=== PATIENT | male | born 1995 | race Two or more races ===

== ENCOUNTER → 2025-04-19 | Outpatient (CLI) | payer OTHER, SELFPAY ==
--- OUTSIDE RECORDS SUMMARY | 2025-04-19 08:04 | XMS RPT_ITS | CCD ---
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 eGFR(ml/min/1.73 sq.m.) CKD 1 Normal kidney function or >=90 normal kindney function with possible kidney damage (ex. Proteinuria) CKD 2 Kidney damage with mild loss 60-89 of kidney function CKD 3a Mild to moderate loss of kidney 45-59 function CKD 3b Moderate to severe loss of 30-44 of kindey function CKD 4 Severe loss of kidney function 15-29 CKD 5 Kidney failure <15 Note: (go live 2024) the eGFR calculation was updated to the 2020 CKD-EPI creatinine equation without a race factor to calculate the eGFR results. Performed By: #### U HUMBERTO, TUP, ANEU, FTI, LD, CMP, GFR, ADIFF, TSH, T4, CK, CBC, LIPID, T3, PHOS #### [address] [address] .NEUABSon 01-01-2025 Neutrophil, Absolute 3.6 10 3/mcL Normal 2.3-8.1 [facility] Comment on above: Performed By: #### U HUMBERTO, TUP, ANEU, FTI, LD, CMP, GFR, ADIFF, TSH, T4, CK, CBC, LIPID, T3, PHOS #### [place] [address] CBCon 01-01-2025 Erythrocyte distribution width (RBC) [Ratio] 13.1 % Normal 11.5-15.5 [facility] Comment on above: Performed By: #### U HUMBERTO, TUP, ANEU, FTI, LD, CMP, GFR, ADIFF, TSH, T4, CK, CBC, LIPID, T3, PHOS #### [place] [address] Hematocrit (Bld) [Volume fraction] 47.5 % Normal 40.0-52.0 [facility] Comment on above: Performed By: #### U HUMBERTO, TUP, ANEU, FTI, LD, CMP, GFR, ADIFF, TSH, T4, CK, CBC, LIPID, T3, PHOS #### [place] [address] Hgb 16.3 G/dL Normal 13.0-17.5 [facility] Comment on above: Performed By: #### U HUMBERTO, TUP, ANEU, FTI, LD, CMP, GFR, ADIFF, TSH, T4, CK, CBC, LIPID, T3, PHOS #### [place] [address] MCH (RBC) [Entitic mass] 31.3 pg Normal 27.0-33.0 [facility] Comment on above: Performed By: #### U HUMBERTO, TUP, ANEU, FTI, LD, CMP, GFR, ADIFF, TSH, T4, CK, CBC, LIPID, T3, PHOS #### [place] [address] MCHC 34.3 G/dL Normal 32.0-36.0 [facility] Comment on above: Performed By: #### U HUMBERTO, TUP, ANEU, FTI, LD, CMP, GFR, ADIFF, TSH, T4, CK, CBC, LIPID, T3, PHOS #### [place] [address] MCV (RBC) [Entitic vol] 91.3 fL Normal 81.0-100.0 [facility] Comment on above: Performed By: #### U HUMBERTO, TUP, ANEU, FTI, LD, CMP, GFR, ADIFF, TSH, T4, CK, CBC, LIPID, T3, PHOS #### [place] [id number] Platelet 242 10 3/mcL Normal 150-450 [facility] Comment on above: Performed By: #### U HUMBERTO, TUP, ANEU, FTI, LD, CMP, GFR, ADIFF, TSH, T4, CK, CBC, LIPID, T3, PHOS #### [place] [id number] Platelet mean volume (Bld) [Entitic vol] 9.0 fL Normal 6.4-10.5 [facility] Comment on above: Performed By: #### U HUMBERTO, TUP, ANEU, FTI, LD, CMP, GFR, ADIFF, TSH, T4, CK, CBC, LIPID, T3, PHOS #### [place] [address] RBC 5.20 10 6/mcL Normal 4.50-6.00 [facility] Comment on above: Performed By: #### U HUMBERTO, TUP, ANEU, FTI, LD, CMP, GFR, ADIFF, TSH, T4, CK, CBC, LIPID, T3, PHOS #### [place] [id number] WBC 6.8 10 3/mcL Normal 4.5-10.8 [facility] Comment on above: Performed By: #### U HUMBERTO, TUP, ANEU, FTI, LD, CMP, GFR, ADIFF, TSH, T4, CK, CBC, LIPID, T3, PHOS #### [place] [id number] CKon 01-01-2025 CK [Catalytic activity/Vol] 179 U/L Normal 7-185 [facility] Comment on above: Performed By: #### U HUMBERTO, TUP, ANEU, FTI, LD, CMP, GFR, ADIFF, TSH, T4, CK, CBC, LIPID, T3, PHOS #### [address] [address] CMPon 01-01-2025 Albumin Level 4.6 G/dL Normal 3.2-4.8 [facility] Comment on above: Performed By: #### U HUMBERTO, TUP, ANEU, FTI, LD, CMP, GFR, ADIFF, TSH, T4, CK, CBC, LIPID, T3, PHOS #### [address] [address] Albumin/Globulin [Mass ratio] 1.6 {ratio} Normal 0.9-1.6 [facility] Comment on above: Performed By: #### U HUMBERTO, TUP, ANEU, FTI, LD, CMP, GFR, ADIFF, TSH, T4, CK, CBC, LIPID, T3, PHOS #### [address] [address] ALP [Catalytic activity/Vol] 107 U/L Normal 38-126 [facility] Comment on above: Performed By: #### U HUMBERTO, TUP, ANEU, FTI, LD, CMP, GFR, ADIFF, TSH, T4, CK, CBC, LIPID, T3, PHOS #### [address] [address] ALT [Catalytic activity/Vol] 17 U/L Normal 12-55 [facility] Comment on above: Performed By: #### U HUMBERTO, TUP, ANEU, FTI, LD, CMP, GFR, ADIFF, TSH, T4, CK, CBC, LIPID, T3, PHOS #### [address] [address] AST [Catalytic activity/Vol] 20 U/L Normal 8-34 [facility] Comment on above: Performed By: #### U HUMBERTO, TUP, ANEU, FTI, LD, CMP, GFR, ADIFF, TSH, T4, CK, CBC, LIPID, T3, PHOS #### [address] [address] Bili Total 0.50 mg/dL Normal 0.20-1.20 [facility] Comment on above: Result Comment: Use of this assay is not recommended for patients undergoing treatment with eltrombopag due to the potential for falsely elevated results. Performed By: #### U HUMBERTO, TUP, ANEU, FTI, LD, CMP, GFR, ADIFF, TSH, T4, CK, CBC, LIPID, T3, PHOS #### [address] [address] BUN/Creatinine Ratio 20.0 ratio Normal 10.0-22.0 [facility] Comment on above: Performed By: #### U HUMBERTO, TUP, ANEU, FTI, LD, CMP, GFR, ADIFF, TSH, T4, CK, CBC, LIPID, T3, PHOS #### [address] [address] Calcium [Mass/Vol] 9.7 mg/dL Normal 8.7-10.4 [facility] Comment on above: Performed By: #### U HUMBERTO, TUP, ANEU, FTI, LD, CMP, GFR, ADIFF, TSH, T4, CK, CBC, LIPID, T3, PHOS #### [address] [address] Chloride [Moles/Vol] 104 mmol/L Normal 98-110 [facility] Comment on above: Performed By: #### U HUMBERTO, TUP, ANEU, FTI, LD, CMP, GFR, ADIFF, TSH, T4, CK, CBC, LIPID, T3, PHOS #### [address] [address] CO2 [Moles/Vol] 29 mmol/L Normal 22-32 [facility] Comment on above: Performed By: #### U HUMBERTO, TUP, ANEU, FTI, LD, CMP, GFR, ADIFF, TSH, T4, CK, CBC, LIPID, T3, PHOS #### [address] [address] Creatinine [Mass/Vol] 0.85 mg/dL Normal 0.60-1.40 [facility] Comment on above: Result Comment: Test ing performed on Qiro analyzer using enzymatic creatinine methodology. Performed By: #### U HUMBERTO, TUP, ANEU, FTI, LD, CMP, GFR, ADIFF, TSH, T4, CK, CBC, LIPID, T3, PHOS #### [address] [address] Electrolyte Balance 8.0 mEq/L Normal 4.0-15.0 [facility] Comment on above: Performed By: #### U HUMBERTO, TUP, ANEU, FTI, LD, CMP, GFR, ADIFF, TSH, T4, CK, CBC, LIPID, T3, PHOS #### [address] [address] Globulin 2.8 G/dL Normal 2.5-4.2 [facility] Comment on above: Performed By: #### U HUMBERTO, TUP, ANEU, FTI, LD, CMP, GFR, ADIFF, TSH, T4, CK, CBC, LIPID, T3, PHOS #### [address] [address] Glucose [Mass/Vol] 102 mg/dL Normal 70-110 [facility] Comment on above: Performed By: #### U HUMBERTO, TUP, ANEU, FTI, LD, CMP, GFR, ADIFF, TSH, T4, CK, CBC, LIPID, T3, PHOS #### [address] [address] Potassium [Moles/Vol] 3.9 mmol/L Normal 3.5-5.0 [facility] Comment on above: Performed By: #### U HUMBERTO, TUP, ANEU, FTI, LD, CMP, GFR, ADIFF, TSH, T4, CK, CBC, LIPID, T3, PHOS #### [address] [address] Sodium [Moles/Vol] 141 mmol/L Normal 136-145 [facility] Comment on above: Performed By: #### U HUMBERTO, TUP, ANEU, FTI, LD, CMP, GFR, ADIFF, TSH, T4, CK, CBC, LIPID, T3, PHOS #### [place] [address] Total Protein 7.4 G/dL Normal 5.7-8.2 [facility] Comment on above: Performed By: #### U HUMBERTO, TUP, ANEU, FTI, LD, CMP, GFR, ADIFF, TSH, T4, CK, CBC, LIPID, T3, PHOS #### [place] [address] Urea nitrogen [Mass/Vol] 17.0 mg/dL Normal 8.0-22.0 [facility] Comment on above: Performed By: #### U HUMBERTO, TUP, ANEU, FTI, LD, CMP, GFR, ADIFF, TSH, T4, CK, CBC, LIPID, T3, PHOS #### [place] [address] FTIon 01-01-2025 Free Thyroxine Index 11.02 Normal 3.60-14.00 [facility] Comment on above: Performed By: #### U HUMBERTO, TUP, ANEU, FTI, LD, CMP, GFR, ADIFF, TSH, T4, CK, CBC, LIPID, T3, PHOS #### [place] [id number] LDHon 01-01-2025 LDH 197 U/L Normal 120-246 [facility] Comment on above: Performed By: #### U HUMBERTO, TUP, ANEU, FTI, LD, CMP, GFR, ADIFF, TSH, T4, CK, CBC, LIPID, T3, PHOS #### [place] [address] LIPIDon 01-01-2025 Cholesterol [Mass/Vol] 179 mg/dL Normal 50-199 [facility] Comment on above: Result Comment: Chol esterol Reference Interval: Less than 200 Desirable 200-239 Borderline high risk 240 and above High risk Performed By: #### U HUMBERTO, TUP, ANEU, FTI, LD, CMP, GFR, ADIFF, TSH, T4, CK, CBC, LIPID, T3, PHOS #### [place] [address] Cholesterol in HDL [Mass/Vol] 57 mg/dL Normal 40-59 [facility] Comment on above: Performed By: #### U HUMBERTO, TUP, ANEU, FTI, LD, CMP, GFR, ADIFF, TSH, T4, CK, CBC, LIPID, T3, PHOS #### [place] [address] Cholesterol in LDL [Mass/Vol] 109 mg/dL Normal 0-129 [facility] Comment on above: Performed By: #### U HUMBERTO, TUP, ANEU, FTI, LD, CMP, GFR, ADIFF, TSH, T4, CK, CBC, LIPID, T3, PHOS #### [place] [address] Triglyceride [Mass/Vol] 65 mg/dL Normal 3-149 [facility] Comment on above: Performed By: #### U HUMBERTO, TUP, ANEU, FTI, LD, CMP, GFR, ADIFF, TSH, T4, CK, CBC, LIPID, T3, PHOS #### [place] [address] PHOSon 01-01-2025 Phosphate [Mass/Vol] 3.2 mg/dL Normal 2.4-5.1 [facility] Comment on above: Performed By: #### U HUMBERTO, TUP, ANEU, FTI, LD, CMP, GFR, ADIFF, TSH, T4, CK, CBC, LIPID, T3, PHOS #### [place] [address] T3on 01-01-2025 Total T3 119 ng/dL Normal 60-181 [facility] Comment on above: Performed By: #### U HUMBERTO, TUP, ANEU, FTI, LD, CMP, GFR, ADIFF, TSH, T4, CK, CBC, LIPID, T3, PHOS #### [place] [address] T4on 01-01-2025 T4 [Mass/Vol] 6.8 ug/dL Normal 4.5-10.9 [facility] Comment on above: Result Comment: No te - New Reference Range in effect 20 Performed By: #### U HUMBERTO, TUP, ANEU, FTI, LD, CMP, GFR, ADIFF, TSH, T4, CK, CBC, LIPID, T3, PHOS #### [place] [id number] TSHon 01-01-2025 TSH 1.336 mIU/mL Normal 0.550-4.780 [facility] Comment on above: Performed By: #### U HUMBERTO, TUP, ANEU, FTI, LD, CMP, GFR, ADIFF, TSH, T4, CK, CBC, LIPID, T3, PHOS #### [place] [address] TUPon 01-01-2025 T Uptake 1.62 ratio High 0.90-1.43 [facility] Comment on above: Result Comment: No te - New Reference Range in effect 20 Performed By: #### U HUMBERTO, TUP, ANEU, FTI, LD, CMP, GFR, ADIFF, TSH, T4, CK, CBC, LIPID, T3, PHOS #### [place] [address] URICon 01-01-2025 Uric Acid Lvl 6.5 mg/dL Normal 3.7-9.2 [facility] Comment on above: Performed By: #### U HUMBERTO, TUP, ANEU, FTI, LD, CMP, GFR, ADIFF, TSH, T4, CK, CBC, LIPID, T3, PHOS #### [place] [address] Laboratory - Chemistry and C hemistry - challenge 01-25-2024 Albumin [Mass/Vol] 4.4 g/dL Normal 3.4 - 5.0 g/dL [facility] Work Phone: Albumin [Mass/Vol] 1.4 g/dL Normal 0.9 - 1.6 [facility]; [facility] Work Phone: ALT [Catalytic activity/Vol] 30 U/L Normal 16 - 63 U/L [facility]; [facility] Work Phone: Anion gap [Moles/Vol] 11 mmol/L Normal 10 - 20 mmol/L [facility]; [facility] Work Phone: AST [Catalytic activity/Vol] 21 U/L Normal 15 - 37 U/L [facility]; [facility] Work Phone: Bilirubin [Mass/Vol] 0.6 mg/dL Normal 0.2 - 1.0 mg/dL [facility]; [facility] Work Phone: Calcium [Mass/Vol] 9.3 mg/dL Normal 8.5 - 10. 1 mg/dL [facility]; [facility] Work Phone: Chloride [Moles/Vol] 102 mmol/L Normal 98 - 107 mmol/L [facility]; [facility] Work Phone: Cholesterol [Mass/Vol] 202 mg/dL Normal 0 - 240 mg/dL [facility]; [facility] Work Phone: Cholesterol in HDL [Mass or moles/Vol] 64 mg/dL Abnormal 40 - 60 mg/dL [facility]; [facility] Work Phone: Cholesterol in LDL [Mass/Vol] 123 mg/dL Normal 0 - 129 mg/dL [facility]; [facility] Work Phone: Cholesterol.total/ Cholesterol in HDL [Mass ratio] 3.2 {ratio} Normal 0.0 - 5.0 [facility]; [facility] Work Phone: CO2 [Moles/Vol] 29.2 mmol/L Normal 21.0 - 32.0 mmol/L [facility]; [facility] Work Phone: Creatinine [Mass/Vol] 1.06 mg/dL Normal 0.70 - 1.30 mg/dL [facility]; [facility] Work Phone: GFR/1.73 sq M.predicted among blacks MDRD (S/P/Bld) [Vol rate/Area] mL/min/{1.73_m2} Normal 60 - 999 {ML/MINUTE} [facility]; [facility] Work Phone: GFR/1.73 sq M.predicted MDRD (S/P/Bld) [Vol rate/Area] mL/min/{1.73_m2} Normal 60 - 999 {ML/MINUTE} [facility]; [facility]. Work Phone: Globulin (S) [Mass/Vol] 3.2 g/dL Normal 1.5 - 3.8 g/dL [facility]; [facility] Work Phone: Glucose [Mass/Vol] 108 mg/dL Abnormal 74 - 106 mg/dL [facility]; [facility] Work Phone: Lipid 1996 panel Normal [facility]; [facility] Work Phone: Potassium [Moles/Vol] 4.4 mmol/L Normal 3.5 - 5.1 mmol/L [facility]; [facility] Work Phone: Protein [Mass/Vol] 7.6 g/dL Normal 6.4 - 8.2 g/dL [facility]; [facility] Work Phone: Sodium [Moles/Vol] 138 mmol/L Normal 136 - 145 mmol/L [facility].; [email or web address] [facility], [employer]. Work Phone: Triglyceride [Mass/Vol] 75 mg/dL Normal 0 - 150 mg/dL [facility].; [email or web address] [facility]. Work Phone: Urea nitrogen [Mass/Vol] 13 mg/dL Normal 7 - 18 mg/dL [facility].; [employer] [facility]. Work Phone: Urea nitrogen/Creatinin e [Mass ratio] 12 {ratio} Normal 0 - 30 {ratio} [facility].; [facility], [employer]. Work Phone: No Panel Informationon 01-24 AGE 28 {years} Normal [facility].; [employer] [facility], [employer]. Work Phone: ALK PHOS 113 U/L Normal 46 - 116 U/L [facility].; 5[employer] [facility], [employer]. Work Phone: CMP with eGFR Normal [facility]; [employer] [facility]. Work Phone: RUBEOon 05-03-2023 Rubeola IgG Ab Positive Normal [facility] ([place]) Comment on above: Result Comment: INTE RPRETATION OF RUBEOLA (MEASLES) IgG BY EIA: Negative: No detectable Measles IgG antibody. Presumed non-immune to measles virus. Positive: Measles IgG antibody Detected. Presumed immune to measles virus. If clinically indicated, order Measles IgM to rule out active infection. Equivocal: Equivocal for antibodies to Measles. Suggest repeat testing 10-14 days. Performed By: #### R UBEO, VARIS, HBSAB, RUBIS #### [place] [address] VARISon 05-03-[address] Positive Normal [facility] ([place]) Comment on above: Result Comment: INTE RPRETATION OF VARICELLA IMMUNE STATUS IgG BY EIA: Negative: No detectable VZV IgG antibody. Positive: VZV IgG antibody Detected. If clinically indicated, order Varicella IgM to rule out recent infection. Equivocal: Equivocal for antibodies to VZV. Suggest repeat testing in 10-14 days. Performed By: #### R HOSSEIN VILLAS, HBSAB, RUBIS #### [address] [address] RUBISon 04-29-[address] Positive Normal Positive [facility] ([place]) Comment on above: Result Comment: This immune status assay detects IgM and/or IgG antibody to Rubella. Interpret results in conjunction with clinical history. POS: Antibody detected; exposure at undetermined recent or distant time. If clinically indicated, order Rubella IGM to rule out recent infection. NEG: No antibody detected. Performed By: #### R HOSSEIN VILLAS, HBSAB, RUBIS #### [address] [address] HBSABon 04-28-2023 Hep B Surf Ab 568.5 mIU/mL Normal >=10.0 [facility] ([place]) Comment on above: Result Comment: 0 to < 10.0 mIU/mL Nonreactive Patient is considered not to have protective immunity to HBV infection >/= 10.0 mIU/mL Reactive Patient is considered to have protective immunity to HBV infection. This assay is traceable to the World Health Organization (WHO) Hepatitis B Immunoglobulin 1st International Reference Preparation (1976). The accepted criteria for immunity to HBV is anti-HBs activity >/= 10.0 mIU/mL, as defined by the WHO International Reference Preparation. Performed By: #### R HOSSEIN VILLAS, HBSAB, RUBIS #### [address] [address] Laboratory - Chemistry and C hemistry - challengeon 05-18-2018 Albumin BCP dye [Mass/Vol] 4.3 g/dL Normal 3.2 - 4.8 g/dL [facility], [facility].; [facility] Albumin/Globulin [Mass ratio] 1.4 {ratio} Normal 0.9 - 1.6 {ratio} [facility].; [facility]. ALP [Catalytic activity/Vol] 123 U/L Normal 38 - 126 U/L [facility]; [facility] ALT No additional P-5'-P [Catalytic activity/Vol] 26 U/L Normal 12 - 55 U/L [facility]; [facility] ALT With P-5'-P [Catalytic activity/Vol] 26 U/L Normal 12 - 55 U/L [facility]; [facility] AST [Catalytic activity/Vol] 18 U/L Normal 8 - 34 U/L [facility]; [facility] AST With P-5'-P [Catalytic activity/Vol] 18 U/L Normal 8 - 34 U/L [facility]; [facility] Bilirubin [Mass/Vol] 0.3 mg/dL Normal 0.2 - 1.2 mg/dL [facility]; [facility] Calcium [Mass/Vol] 9.3 mg/dL Normal 8.4 - 10. 1 mg/dL [facility]; [facility] Chloride [Moles/Vol] 102 mmol/L Normal 98 - 110 meq/L [facility]; [facility] CO2 [Moles/Vol] 28 mmol/L Normal 22 - 32 meq/L [facility]; [facility] Creatinine [Mass/Vol] 0.91 mg/dL Normal 0.60 - 1.40 mg/dL [facility]; [facility], [facility] GFR/1.73 sq M.predicted among blacks MDRD (S/P/Bld) [Vol rate/Area] mL/min/{1.73_m2} Normal [facility]; [facility] Work Phone: GFR/1.73 sq M.predicted among non-blacks MDRD (S/P/Bld) [Vol rate/Area] mL/min/{1.73_m2} Normal [facility]; [facility] Work Phone: Globulin (S) [Mass/Vol] 3.1 g/dL Normal 1.5 - 3.8 g/dL [facility]; [facility] Glucose [Mass/Vol] 71 mg/dL Normal 70 - 110 mg/dL [facility]; [facility] Potassium [Moles/Vol] 4.0 mmol/L Normal 3.5 - 5.0 meq/L [facility]; [facility] Protein [Mass/Vol] 7.4 g/dL Normal 6.0 - 8.5 g/dL [facility]; [facility] Sodium [Moles/Vol] 139 mmol/L Normal 136 - 145 meq/L [facility]; [facility] Urea nitrogen [Mass/Vol] 18.0 mg/dL Normal 8.0 - 22.0 mg/dL [facility]; [facility] Urea nitrogen/Creatinin e [Mass ratio] 19.8 {ratio} Normal 10.0 - 22.0 {ratio} [facility]; [facility] No Panel Informationon 05-18 Electrolyte Balance 9.0 meq/L Normal 4.0 - 15.0 meq/L [facility]; [facility], [facility] Laboratory - Chemistry and C hemistry - challengeon 11-30-2017 Albumin BCP dye [Mass/Vol] 4.3 g/dL Normal 3.2 - 4.8 g/dL [facility]; [facility] Albumin/Globulin [Mass ratio] 1.5 {ratio} Normal 0.9 - 1.6 {ratio} [facility]; [facility] ALP [Catalytic activity/Vol] 131 U/L Abnormal 38 - 126 U/L [facility]; [facility] ALT No additional P-5'-P [Catalytic activity/Vol] 55 U/L Normal 12 - 55 U/L [facility]; [facility] ALT With P-5'-P [Catalytic activity/Vol] 55 U/L Normal 12 - 55 U/L [facility]; [facility] AST [Catalytic activity/Vol] 50 U/L Abnormal 8 - 34 U/L [facility]; [facility] AST With P-5'-P [Catalytic activity/Vol] 50 U/L Abnormal 8 - 34 U/L [facility]; [facility] Bilirubin [Mass/Vol] 0.3 mg/dL Normal 0.2 - 1.2 mg/dL [facility]; [facility] Bilirubin Ql (U) Negative Normal [facility]; [facility] Calcium [Mass/Vol] 9.8 mg/dL Normal 8.4 - 10. 1 mg/dL [facility]; [facility] Chloride [Moles/Vol] 104 mmol/L Normal 98 - 110 meq/L [facility]; [facility] CO2 [Moles/Vol] 29 mmol/L Normal 22 - 32 meq/L [facility]; [facility] Creatinine [Mass/Vol] 0.89 mg/dL Normal 0.60 - 1.40 mg/dL [facility]; [facility], [facility] GFR/1.73 sq M.predicted among blacks MDRD (S/P/Bld) [Vol rate/Area] mL/min/{1.73_m2} Normal [facility]; [facility] Work Phone: GFR/1.73 sq M.predicted among non-blacks MDRD (S/P/Bld) [Vol rate/Area] mL/min/{1.73_m2} Normal [facility].; [facility] Work Phone: Globulin (S) [Mass/Vol] 2.9 g/dL Normal 1.5 - 3.8 g/dL [facility]; [facility] Glucose [Mass/Vol] 88 mg/dL Normal 70 - 110 mg/dL [facility]; [facility] Ketones Ql (U) Negative [facility]; [facility] Lipase [Catalytic activity/Vol] 90 U/L Normal 73 - 393 U/L [facility]; [facility] pH (U) 7.0 [pH] [facility]; [facility] Potassium [Moles/Vol] 4.8 mmol/L Normal 3.5 - 5.0 meq/L [facility]; [facility] Protein [Mass/Vol] 7.2 g/dL Normal 6.0 - 8.5 g/dL [facility]; [facility] Sodium [Moles/Vol] 140 mmol/L Normal 136 - 145 meq/L [facility]; [facility], [facility] Specific gravity (U) [Rel density] 1.015 [facility]; [facility], [facility] Urea nitrogen [Mass/Vol] 17.0 mg/dL Normal 8.0 - 22.0 mg/dL [facility].; [facility] Urea nitrogen/Creatinin e [Mass ratio] 19.1 {ratio} Normal 10.0 - 22.0 {ratio} [facility].; [facility] Laboratory - Hematology and Cell countson 11-30-2017 Basophils (Bld) [#/Vol] 0.00 10 Normal 0.00 - 0.27 10 [facility].; [facility] Work Phone: Basophils/100 WBC (Bld) 0.5 % Normal 0.0 - 2.5 % [facility].; [facility] Work Phone: Eosinophils (Bld) [#/Vol] 0.10 10 Normal 0.00 - 0.[address] [place] [address].; [facility] Work Phone: Eosinophils/100 WBC (Bld) 2.6 % Normal 0.0 - 6.0 % [facility].; [facility] Work Phone: Erythrocyte distribution width (RBC) [Ratio] 13.2 % Normal 11.5 - 15.5 % [facility].; [facility] Hematocrit (Bld) [Volume fraction] 46.3 % Normal 40.0 - 52.0 % [facility].; [facility], [facility] Hemoglobin (Bld) [Mass/Vol] 15.3 g/dL Normal 13.0 - 17.5 g/dL [facility].; [facility], [facility] Hemoglobin Ql (U) Negative Normal [facility]; [facility] Lymphocytes (Bld) [#/Vol] 2.10 10 Normal 0.90 - 4.32 10 [facility].; [facility], [facility]. Work Phone: Lymphocytes/100 WBC (Bld) 39.8 % Normal 20.0 - 40.0 % [facility].; [facility], [facility]. Work Phone: MCH (RBC) [Entitic mass] 31.2 pg Normal 27.0 - 33.0 pg [facility].; [facility], [facility]. MCHC (RBC) [Mass/Vol] 33.1 g/dL Normal 32.0 - 36.0 g/dL [facility].; [facility], [facility]. MCV (RBC) [Entitic vol] 94.3 fL Normal 81.0 - 100.0 fL [facility].; [facility] Monocytes (Bld) [#/Vol] 0.40 10 Normal 0.09 - 1.40 10 [facility].; [facility], [facility]. Work Phone: Monocytes/100 WBC (Bld) 8.0 % Normal 2.0 - 13.0 % [facility].; [facility], [facility]. Work Phone: Neutrophils (Bld) [#/Vol] 2.60 10 Normal 2.25 - 8.10 10 [facility].; [facility], [facility]. Work Phone: Neutrophils/100 WBC (Bld) 49.1 % Abnormal 50.0 - 75.0 % [facility].; [facility], [facility]. Work Phone: Platelet mean volume (Bld) [Entitic vol] 10.0 fL Normal 6.4 - 10.5 fL [facility].; [facility] Platelets (Bld) [#/Vol] 191 10 Normal 150 - 450 10 [facility].; [facility] RBC (Bld) [#/Vol] 4.91 10 Normal 4.50 - 6.00 10 [facility] [employer].; [facility] WBC (Bld) [#/Vol] 5.30 10 Normal 4.50 - 10. 80 10 [facility].; [facility] Laboratory - Specimen inform ationon 11-30-2017 Appearance (U) CLEAR Normal [facility].; [facility] Color (U) YELLOW Normal [facility].; [facility] Laboratory - Urinalysison Glucose Test strip (U) [Mass/Vol] Negative Normal [facility].; [facility] Leukocyte esterase Test strip Ql (U) Negative Normal [facility].; [facility] Nitrite Ql (U) Negative Normal [facility].; [facility] Protein Ql (U) Negative Normal [facility].; [facility] No Panel Informationon 11-30 Basophil, Absolute 0.00 10 Normal 0.00 - 0.27 10 [facility].; [facility] Work Phone: Electrolyte Balance 7.0 meq/L Normal 4.0 - 15.0 meq/L [facility].; [facility] Eosinophil, Absolute 0.10 10 Normal 0.00 - 0.65 10 [facility].; [facility] Work Phone: Lymphocyte, Absolute 2.10 10 Normal 0.90 - 4.32 10 [facility].; [facility]. Work Phone: Monocyte, Absolute 0.40 10 Normal 0.09 - 1.40 10 [facility]; [facility]. Work Phone: Neutrophil, Absolute 2.60 10 Normal 2.25 - 8.10 10 [facility]; [facility]. Work Phone: UA - ODOR Negative Normal [facility]; [facility] UA - UROBILIGEN 0.2 Normal [facility]; [facility] Laboratory - Chemistry and C hemistry - challengeon 06-02-2017 Albumin BCP dye [Mass/Vol] 4.9 g/dL Normal 3.5 - 5.0 g/dL [facility]; [facility] Work Phone: Albumin/Globulin [Mass ratio] 1.9 {ratio} Normal 1.1 - 2.5 {ratio} [facility]; [facility]. Work Phone: ALP [Catalytic activity/Vol] 129 U/L Normal 40 - 135 [iU]/L [facility]; [facility]. Work Phone: ALT No additional P-5'-P [Catalytic activity/Vol] 17 U/L Normal 10 - 35 [iU]/L [facility]; [facility]. Work Phone: ALT With P-5'-P [Catalytic activity/Vol] 17 U/L Normal 10 - 35 [iU]/L [facility].; [facility]. Work Phone: AST [Catalytic activity/Vol] 19 U/L Normal 10 - 40 [iU]/L [facility].; [facility]. Work Phone: AST With P-5'-P [Catalytic activity/Vol] 19 U/L Normal 10 - 40 [iU]/L [facility]; [facility]. Work Phone: Bilirubin [Mass/Vol] 0.5 mg/dL Normal 0.2 - 1.0 mg/dL [facility]; [facility]. Work Phone: Calcium [Mass/Vol] 10.1 mg/dL Normal 8.4 - 10. 2 mg/dL [facility]; [facility]. Work Phone: Chloride [Moles/Vol] 103 mmol/L Normal 98 - 107 meq/L [facility]; [facility]. Work Phone: CO2 [Moles/Vol] 31 mmol/L Abnormal 22 - 29 meq/L [facility].; [facility]. Work Phone: Creatinine [Mass/Vol] 1.0 mg/dL Normal 0.6 - 1.2 mg/dL [facility]; [facility]. Work Phone: GFR/1.73 sq M.predicted among blacks MDRD (S/P/Bld) [Vol rate/Area] 110 {ml/min/1.73sqm} Normal [facility]; [facility]. Work Phone: GFR/1.73 sq M.predicted among non-blacks MDRD (S/P/Bld) [Vol rate/Area] mL/min/{1.73_m2} Normal [facility]; [facility]. Work Phone: Globulin (S) [Mass/Vol] 2.6 g/dL Normal [facility]; [facility] Work Phone: Glucose [Mass/Vol] 132 mg/dL Abnormal 70 - 105 mg/dL [facility]; [facility] Work Phone: Potassium [Moles/Vol] 4.9 mmol/L Normal 3.5 - 5.1 meq/L [facility]; [facility] Work Phone: Protein [Mass/Vol] 7.5 g/dL Normal 6.0 - 8.3 g/dL [facility]; [facility] Work Phone: Sodium [Moles/Vol] 140 mmol/L Normal 136 - 146 meq/L [facility]; [facility] Work Phone: Urea nitrogen [Mass/Vol] 12.0 mg/dL Normal 7.0 - 18.0 mg/dL [facility]; [facility] Work Phone: Urea nitrogen/Creatinin e [Mass ratio] 12 {ratio} Normal 7 - 27 {ratio} [facility]; [facility] Work Phone: Laboratory - Hematology and Cell countson 06-02-2017 Basophils (Bld) [#/Vol] 0.00 10 Normal 0.00 - 0.[address] [place] [address]; [facility] Work Phone: Basophils/100 WBC (Bld) 0.6 % Normal 0.0 - 2.5 % [facility]; [facility] Work Phone: Eosinophils (Bld) [#/Vol] 0.20 10 Normal 0.00 - 0.[address] [place] [address]; [facility] Work Phone: Eosinophils/100 WBC (Bld) 3.2 % Normal 0.0 - 7.0 % [facility]; [facility] Work Phone: Erythrocyte distribution width (RBC) [Ratio] 12.4 % Normal 11.5 - 14.5 % [facility]; [facility] Work Phone: ESR Photometric method (Bld) [Velocity] 1 mm/h Normal 0 - 15 mm/h [facility]; [facility] Work Phone: Hematocrit (Bld) [Volume fraction] 47.7 % Normal 42.0 - 52.0 % [facility]; [facility] Work Phone: Hemoglobin (Bld) [Mass/Vol] 16.0 g/dL Normal 14.0 - 18.0 g/dL [facility]; [facility] Work Phone: Lymphocytes (Bld) [#/Vol] 2.10 10 Normal 0.77 - 3.85 10 [facility]; [facility] Work Phone: Lymphocytes/100 WBC (Bld) 38.1 % Normal 10.0 - 50.0 % [facility]; [facility] Work Phone: MCH (RBC) [Entitic mass] 30.1 pg Normal 27.0 - 31.2 pg [facility]; [facility] Work Phone: MCHC (RBC) [Mass/Vol] 33.6 g/dL Normal 31.8 - 35.4 g/dL [facility]; [facility] Work Phone: MCV (RBC) [Entitic vol] 89.6 fL Normal 80.0 - 94.0 fL [facility] Center[facility]; [facility]. Work Phone: Monocytes (Bld) [#/Vol] 0.40 10 Normal 0.15 - 1.00 10 [facility].; [facility]. Work Phone: Monocytes/100 WBC (Bld) 7.1 % Normal 1.7 - 13.0 % [facility].; [facility]. Work Phone: Neutrophils (Bld) [#/Vol] 2.90 10 Normal 2.85 - 6.16 10 [facility].; [facility]. Work Phone: Neutrophils/100 WBC (Bld) 51.0 % Normal 37.0 - 80.0 % [facility] HospitalBel[facility] [employer]; [facility]. Work Phone: Platelet mean volume (Bld) [Entitic vol] 9.3 fL Normal 7.4 - 10.4 fL [facility].; [facility]. Work Phone: Platelets (Bld) [#/Vol] 204 10 Normal 130 - 400 10 [facility].; [facility]. Work Phone: RBC (Bld) [#/Vol] 5.32 10 Normal 4.04 - 6.13 10 [facility].; [facility]. Work Phone: WBC (Bld) [#/Vol] 5.60 10 Normal 4.60 - 10. 80 10 [facility].; [facility], [employer]. Work Phone: No Panel Informationon 06-02 Basophil, Absolute 0.00 10 Normal 0.00 - 0.19 10 [facility]; [facility]. Work Phone: Electrolyte Balance 6.0 meq/L Normal [facility]; [facility] Work Phone: Eosinophil, Absolute 0.20 10 Normal 0.00 - 0.40 10 [facility]; [facility] Work Phone: Lymphocyte, Absolute 2.10 10 Normal 0.77 - 3.85 10 [facility]; [facility]. Work Phone: Monocyte, Absolute 0.40 10 Normal 0.15 - 1.00 10 [facility]; [facility] Work Phone: Neutrophil, Absolute 2.90 10 Normal 2.85 - 6.16 10 [facility]; [facility] Work Phone: Laboratory - Chemistry and C hemistry - challengeon 03-03-2017 Albumin BCP dye [Mass/Vol] 5.0 g/dL Normal 3.5 - 5.0 g/dL [facility]; [facility] Work Phone: Albumin/Globulin [Mass ratio] 1.7 {ratio} Normal 1.1 - 2.5 {ratio} [facility]; [facility] Work Phone: ALP [Catalytic activity/Vol] 157 U/L Abnormal 40 - 135 [iU]/L [facility]; [facility] Work Phone: ALT No additional P-5'-P [Catalytic activity/Vol] 23 U/L Normal 10 - 35 [iU]/L [facility]; [facility] Work Phone: ALT With P-5'-P [Catalytic activity/Vol] 23 U/L Normal 10 - 35 [iU]/L [facility]; [facility] Work Phone: AST [Catalytic activity/Vol] 22 U/L Normal 10 - 40 [iU]/L [facility]; [facility] Work Phone: AST With P-5'-P [Catalytic activity/Vol] 22 U/L Normal 10 - 40 [iU]/L [facility]; [facility] Work Phone: Bilirubin [Mass/Vol] 0.4 mg/dL Normal 0.2 - 1.0 mg/dL [facility]; [facility] Work Phone: Calcium [Mass/Vol] 10.2 mg/dL Normal 8.4 - 10. 2 mg/dL [facility]; [facility] Work Phone: Chloride [Moles/Vol] 103 mmol/L Normal 98 - 107 meq/L [facility]; [facility] Work Phone: Cholesterol [Mass/Vol] 173 mg/dL Normal 131 - 200 mg/dL [facility]; [facility] Work Phone: Cholesterol in HDL [Mass/Vol] 57 mg/dL Normal 35 - 90 mg/dL [facility]; [facility] Work Phone: Cholesterol in LDL [Mass/Vol] 103 mg/dL Normal 0 - 130 mg/dL [facility]; [facility], [facility] Work Phone: CO2 [Moles/Vol] 29 mmol/L Normal 22 - 29 meq/L [facility].; [facility] Work Phone: Creatinine [Mass/Vol] 1.0 mg/dL Normal 0.6 - 1.2 mg/dL [facility]; [facility] Work Phone: GFR/1.73 sq M.predicted among blacks MDRD (S/P/Bld) [Vol rate/Area] 115 {ml/min/1.73sqm} Normal [facility]; [facility]. Work Phone: GFR/1.73 sq M.predicted among non-blacks MDRD (S/P/Bld) [Vol rate/Area] mL/min/{1.73_m2} Normal [facility].; [facility]. Work Phone: Globulin (S) [Mass/Vol] 2.9 g/dL Normal [facility]; [facility] Work Phone: Glucose [Mass/Vol] 108 mg/dL Abnormal 70 - 105 mg/dL [facility]; [facility] Work Phone: Magnesium [Mass/Vol] 114 mg/dL Normal 60 - 129 mg/dL [facility]; [facility]. Work Phone: Potassium [Moles/Vol] 5.0 mmol/L Normal 3.5 - 5.1 meq/L [facility]; [facility] Work Phone: Protein [Mass/Vol] 7.9 g/dL Normal 6.0 - 8.3 g/dL [facility]; [facility] Work Phone: Sodium [Moles/Vol] 140 mmol/L Normal 136 - 146 meq/L [facility]; [facility] Work Phone: Triglyceride [Mass/Vol] 67 mg/dL Normal 40 - 150 mg/dL [facility]; [facility] Work Phone: Urea nitrogen [Mass/Vol] 19.5 mg/dL Abnormal 7.0 - 18.0 mg/dL [facility]; [facility]. Work Phone: Urea nitrogen/Creatinin e [Mass ratio] 20 {ratio} Normal 7 - 27 {ratio} [facility]; [facility] Work Phone: Laboratory - Hematology and Cell countson 03-03-2017 Basophils (Bld) [#/Vol] 0.10 10 Normal 0.00 - 0.[address] [place] [address]; [facility]. Work Phone: Basophils/100 WBC (Bld) 0.8 % Normal 0.0 - 2.5 % [facility]; [facility]. Work Phone: Eosinophils (Bld) [#/Vol] 0.30 10 Normal 0.00 - 0.[address] [place] [address]; [facility] Work Phone: Eosinophils/100 WBC (Bld) 4.0 % Normal 0.0 - 7.0 % [facility]; [facility] Work Phone: Erythrocyte distribution width (RBC) [Ratio] 12.7 % Normal 11.5 - 14.5 % [facility]; [facility] Work Phone: Hematocrit (Bld) [Volume fraction] 49.6 % Normal 42.0 - 52.0 % [facility]; [facility] Work Phone: Hemoglobin (Bld) [Mass/Vol] 16.8 g/dL Normal 14.0 - 18.0 g/dL [facility]; [facility] Work Phone: Lymphocytes (Bld) [#/Vol] 3.40 10 Normal 0.77 - 3.85 10 [facility].; [facility] Work Phone: Lymphocytes/100 WBC (Bld) 43.4 % Normal 10.0 - 50.0 % [facility]; [facility] Work Phone: MCH (RBC) [Entitic mass] 30.5 pg Normal 27.0 - 31.2 pg [facility]; [facility] Work Phone: MCHC (RBC) [Mass/Vol] 33.8 g/dL Normal 31.8 - 35.4 g/dL [facility]; [facility] Work Phone: MCV (RBC) [Entitic vol] 90.0 fL Normal 80.0 - 94.0 fL [facility]; [facility] Work Phone: Monocytes (Bld) [#/Vol] 0.50 10 Normal 0.15 - 1.[address] [place] [address].; [facility]. Work Phone: Monocytes/100 WBC (Bld) 6.5 % Normal 1.7 - 13.0 % [facility]; [facility] Work Phone: Neutrophils (Bld) [#/Vol] 3.60 10 Normal 2.85 - 6.16 10 [facility]; [facility] Work Phone: Neutrophils/100 WBC (Bld) 45.3 % Normal 37.0 - 80.0 % [facility]; [facility] Work Phone: Platelet mean volume (Bld) [Entitic vol] 8.6 fL Normal 7.4 - 10.4 fL [facility].; [facility], [facility]. Work Phone: Platelets (Bld) [#/Vol] 221 10 Normal 130 - 400 10 [facility].; [facility], [facility]. Work Phone: RBC (Bld) [#/Vol] 5.51 10 Normal 4.04 - 6.13 10 [facility].; [facility], [facility]. Work Phone: WBC (Bld) [#/Vol] 7.90 10 Normal 4.60 - 10. 80 10 [facility].; [facility], [facility]. Work Phone: No Panel Informationon 03-03 Basophil, Absolute 0.10 10 Normal 0.00 - 0.19 10 [facility].; [facility], [facility]. Work Phone: Electrolyte Balance 8.0 meq/L Normal [facility]; [facility], [facility]. Work Phone: Eosinophil, Absolute 0.30 10 Normal 0.00 - 0.40 10 [facility].; [facility], [facility]. Work Phone: Lymphocyte, Absolute 3.40 10 Normal 0.77 - 3.85 10 [facility].; [facility], [facility]. Work Phone: Monocyte, Absolute 0.50 10 Normal 0.15 - 1.00 10 [facility].; [facility]. Work Phone: Neutrophil, Absolute 3.60 10 Normal 2.85 - 6.16 10 [facility].; [facility]. Work Phone: VLDL Cholesterol Test Not Indicated Normal [facility].; [facility], [facility]. Work Phone: Vital Signs Date Time Vital Sign Value Performing Clinician Facility 04-03-2025 08:41-0400 Body height 177.[address] Adam Deluca MD Work Phone: [facility] 04-03-2025 08:41-0400 Body mass index (BMI) [Ratio] 24.7 kg/m2 Dr. Adam Deluca MD Work Phone: [facility] 04-03-2025 08:41-0400 Body weight 78.[address] Adam Deluca MD Work Phone: [facility] 01-29-2025 10:26-0400 Body height 182.88 cm Batool Lizarraga RN [facility].; [facility], [facility]. 01-29-2025 10:26-0400 Body mass index (BMI) [Ratio] 23.6 kg/m2 Batool Lizarraga RN [facility].; [facility], [facility]. 01-29-2025 10:26-0400 Body surface area Derived from formula 2.01 m2 Batool Lizarraga RN [facility].; [facility], [facility]. 01-29-2025 10:26-0400 Body weight 78.93 kg Batool Lizarraga RN [facility].; [facility], [facility]. 01-29-2025 10:26-0400 Diastolic blood pressure 79 mm[Hg] Batool Lizarraga RN [facility].; [facility], [facility]. Comment on above: Patient Position: Sitting; Cuff Location : Left Arm; Cuff Size: Large 01-29-2025 10:26-0400 Heart rate 71 /min Batool Lizarraga RN [facility], [facility].; [facility]. Comment on above: Pattern: Regular 01-29-2025 10:26-0400 Systolic blood pressure 127 mm[Hg] Batool Lizarraga RN [facility].; [facility]. Comment on above: Patient Position: Sitting; Cuff Location : Left Arm; Cuff Size: Large 01-25-2024 09:42-0400 Body height 177.8 cm Christ KESSLER MD Work Phone: [facility].; [facility]. 01-25-2024 09:42-0400 Body mass index (BMI) [Ratio] 23.73 kg/m2 Christ KESSLER MD Work Phone: [facility].; [facility]. 01-25-2024 09:42-0400 Body surface area Derived from formula 1.93 m2 Christ KESSLER MD Work Phone: [facility].; [facility]. 01-25-2024 09:42-0400 Body weight 75.01 kg Christ KESSLER MD Work Phone: [facility].; [facility]. 01-25-2024 09:42-0400 Diastolic blood pressure 72 mm[Hg] Christ KESSLER MD Work Phone: [facility].; [facility]. Comment on above: Patient Position: Sitting; Cuff Location : Left Arm; Cuff Size: Standard 01-25-2024 09:42-0400 Heart rate 69 /min Christ KESSLER MD Work Phone: [facility] [facility].; [facility]. Comment on above: Pattern: Regular 01-25-2024 09:42-0400 Systolic blood pressure 131 mm[Hg] Christ KESSLER MD Work Phone: [employer] Comment on above: Patient Position: Sitting; Cuff Location : Left Arm; Cuff Size: Standard 04-10-2018 11:24-0400 Body height 177.8 cm Carolyne Hays DPSIi [employer], Inc.; [employer] 04-10-2018 11:24-0400 Body mass index (BMI) [Ratio] 22.38 kg/m2 Carolyne Faustin Vargas Santana [employer]App [facility], Inc.; [employer] Inc. 04-10-2018 11:24-0400 Body surface area Derived from formula 1.88 m2 Carolyne Faustin Vargas Santana [employer]App [facility], [employer]la[employer].; [employer] Inc. 04-10-2018 11:24-0400 Body temperature 97.9 [degF] Carolyne Faustin Vargas Santana Hays DPSI alexis [employer]RightNow, Inc.; [employer], Inc. Comment on above: Method: Oral 04-10-2018 11:24-0400 Body weight 70.76 kg Carolyne Hays DPSIi [employer], Inc.; [employer], Inc. 04-10-2018 11:24-0400 Diastolic blood pressure 62 mm[Hg] Carolyne Dillon Cuyana, [employer].; [employer] Inc. Comment on above: Patient Position: Sitting; Cuff Location : Left Arm; Cuff Size: Standard 04-10-2018 11:24-0400 Heart rate 83 /min Carolyne Hays Oraya [employer], Inc.; [employer] Inc. Comment on above: Pattern: Regular 04-10-2018 11:24-0400 Systolic blood pressure 96 mm[Hg] Carolyne Dillon [employer], Inc.; [employer], Inc. Comment on above: Patient Position: Sitting; Cuff Location : Left Arm; Cuff Size: Standard 11-30-2017 10:09-0400 Body height 177.16 cm Christ KESSLER MD Work Phone: [employer] [facility] [employer]. 11-30-2017 10:09-0400 Body mass index (BMI) [Ratio] 22.69 kg/m2 Christ KESSLER MD Work Phone: [facility] HospitalFlixwagon.; HEALTH SYSTEMEducerus Critical access hospitalFlixwagon. 11-30-2017 10:09-0400 Body surface area Derived from formula 1.88 m2 Christ KESSLER MD Work Phone: [facility] HospitalFlixwagon.; [facility] Critical access hospitalFlixwagon. 11-30-2017 10:09-0400 Body weight 71.22 kg Christ KESSLER MD Work Phone: [facility] HospitalFlixwagon.; [facility] Critical access hospitalFlixwagon. 11-30-2017 10:09-0400 Diastolic blood pressure 55 mm[Hg] Christ KESSLER MD Work Phone: [facility] HospitalFlixwagon.; [facility] Critical access hospitalFlixwagon. Comment on above: Patient Position: Sitting; Cuff Location : Left Arm; Cuff Size: Standard 11-30-2017 10:09-0400 Heart rate 91 /min Christ KESSLER MD Work Phone: [facility] HospitalFlixwagon.; [facility] Critical access hospitalFlixwagon. Comment on above: Pattern: Regular 11-30-2017 10:09-0400 Systolic blood pressure 131 mm[Hg] Christ KESSLER MD Work Phone: [facility] HospitalFlixwagon.; Enkata TechnologiesMercy Medical CenterFlixwagon. Comment on above: Patient Position: Sitting; Cuff Location : Left Arm; Cuff Size: Standard 10-09-2017 09:06-0400 Body height 174.63 cm HERNÁN REILLY RN [facility] Inc.; [facility], [facility]. 10-09-2017 09:06-0400 Body mass index (BMI) [Ratio] 23.12 kg/m2 HERNÁN REILLY RN [facility] HospitalZPower Inc.; [facility] HospitalZ[facility]. 10-09-2017 09:06-0400 Body surface area Derived from formula 1.85 m2 HERNÁN GRATE ELIZABETH [facility] SandForce [facility] HospitalFlixwagon.; [facility] HospitalFlixwagon. 10-09-2017 09:06-0400 Body weight 70.49 kg HERNÁN GRATE ELIZABETH [facility] [employer] Route [facility], BlaBlaCar.; [facility] HospitalZPower Inc. 10-09-2017 09:06-0400 Diastolic blood pressure 65 mm[Hg] HERNÁN GRATE ELIZABETH [facility] HospitalFlixwagon.; [facility] HospitalFlixwagon. Comment on above: Patient Position: Sitting; Cuff Location : Left Arm; Cuff Size: Standard 10-09-2017 09:06-0400 Heart rate 80 /min HERNÁN GRATE ELIZABETH [facility] Emergency[facility], BlaBlaCar.; [facility] HospitalFlixwagon. Comment on above: Pattern: Regular 10-09-2017 09:06-0400 Systolic blood pressure 107 mm[Hg] HERNÁN GRATE ELIZABETH [facility] SandForce [facility] HospitalFlixwagon.; [facility] HospitalFlixwagon. Comment on above: Patient Position: Sitting; Cuff Location : Left Arm; Cuff Size: Standard 07-20-2017 15:220500 Body height 174.63 cm Christ KESSLER MD Work Phone: [facility] HospitalFlixwagon.; Enkata TechnologiesWillis[facility] SandForce Christian[facility] HospitalFlixwagon. 07-20-2017 15:22-0500 Body mass index (BMI) [Ratio] 22.4 kg/m2 Christ KESSLER MD Work Phone: [facility] CenterLabfolder [facility] HospitalFlixwagon.; Enkata TechnologiesWillis-[facility] Urban [employer]. 07-20-2017 15:22-0500 Body surface area Derived from formula 1.83 m2 Christ KESSLER MD Work Phone: [facility] CenterPLC Diagnostics.; Enkata TechnologiesWillis[facility] [employer]. 07-20-2017 15:22-0500 Body weight 68.31 kg Christ KESSLER MD Work Phone: [facility] CenterLabfolder [facility] HospitalFlixwagon.; Enkata TechnologiesEK Ideal Binary [facility] CenterPLC Diagnostics. 07-20-2017 15:22-0500 Diastolic blood pressure 76 mm[Hg] Christ KESSLER MD Work Phone: [facility] HospitalFlixwagon.; [facility] SandForce Christian[facility] HospitalFlixwagon. Comment on above: Patient Position: Sitting; Cuff Location : Left Arm; Cuff Size: Standard 07-20-2017 15:22-0500 Heart rate 88 /min Christ KESSLER MD Work Phone: [facility] SandForce [facility] HospitalFlixwagon.; HEALTH SYSTEMEducerus [facility] SandForce [facility] HospitalFlixwagon. Comment on above: Pattern: Regular 07-20-2017 15:22-0500 Systolic blood pressure 127 mm[Hg] Christ KESSLER MD Work Phone: [facility] HospitalFlixwagon.; HEALTH SYSTEMEducerus [facility] SandForce [facility] HospitalFlixwagon. Comment on above: Patient Position: Sitting; Cuff Location : Left Arm; Cuff Size: Standard 05-29-2017 14:38-0400 Body height 177.16 cm HERNÁN REILLY RN [facility] [employer] [facility], Inc.; [facility] SandForce [facility] HospitalFlixwagon. 05-29-2017 14:38-0400 Body mass index (BMI) [Ratio] 21.62 kg/m2 HERNÁN GRATE ELIZABETH [facility] HospitalFlixwagon.; [facility] HospitalFlixwagon. 05-29-2017 14:38-0400 Body surface area Derived from formula 1.84 m2 HERNÁN REILLY RN [facility], Inc.; BioPro PharmaceuticalPho[facility] SandForce [facility] HospitalFlixwagon. 05-29-2017 14:38-0400 Body weight 67.86 kg HERNÁN GRATE ELIZABETH [facility] [employer], Inc.; BioPro PharmaceuticalP[facility] SandForce [facility] HospitalFlixwagon. 05-29-2017 14:38-0400 Diastolic blood pressure 75 mm[Hg] HERNÁN GRATE ELIZABETH [facility] SandForce [facility] HospitalFlixwagon.; BioPro PharmaceuticalP[facility] SandForce [facility] HospitalFlixwagon. Comment on above: Patient Position: Sitting; Cuff Location : Left Arm; Cuff Size: Standard 05-29-2017 14:38-0400 Heart rate 93 /min HERNÁN GRATE ELIZABETH [facility] [employer], Inc.; BioPro PharmaceuticalP[facility] SandForce Christiana HospitalBeloorBayir Biotech Comment on above: Pattern: Regular 05-29-2017 14:38-0400 Systolic blood pressure 118 mm[Hg] HERNÁN REILLY RN [facility]Fin[facility] HospitalBeloorBayir Biotech; [facility] HospitalFlixwagon. Comment on above: Patient Position: Sitting; Cuff Location : Left Arm; Cuff Size: Standard 05-26-2016 15:04-0400 Body height 177.16 cm Christ KESSLER MD Work Phone: [facility]-Fin[facility] HospitalBeloorBayir Biotech; BioPro PharmaceuticalPho[facility] SandForce [facility] HospitalBeloorBayir Biotech 05-26-2016 15:04-0400 Body mass index (BMI) [Ratio] 21.82 kg/m2 Christ KESSLER MD Work Phone: [facility]Fin[facility] HospitalBeloorBayir Biotech; [facility] HospitalBeloorBayir Biotech 05-26-2016 15:04-0400 Body surface area Derived from formula 1.85 m2 Christ KESSLER MD Work Phone: [facility]Fin[facility] HospitalBeloorBayir Biotech; BioPro PharmaceuticalP[facility] SandForce Christian[facility] HospitalBeloorBayir Biotech 05-26-2016 15:04-0400 Body temperature 97.7 [degF] Christ KESSLER MD Work Phone: [facility]Fin[facility] HospitalBeloorBayir Biotech; BioPro PharmaceuticalBaylor Scott & White Medical Center – HillcrestFlixwagon. Comment on above: Method: Oral 05-26-2016 15:04-0400 Body weight 68.49 kg Christ KESSLER MD Work Phone: [facility]Fin[facility] HospitalBeloorBayir Biotech; BioPro PharmaceuticalNEW LIFECARE [facility] Ideal Binary [facility] SandForce Christian[facility] HospitalBeloorBayir Biotech 05-26-2016 15:04-0400 Diastolic blood pressure 67 mm[Hg] Christ KESSLER MD Work Phone: [facility] SandForce Christian[facility] HospitalBeloorBayir Biotech; BioPro PharmaceuticalP[facility] SandForce [facility] HospitalBeloorBayir Biotech Comment on above: Patient Position: Sitting; Cuff Location : Left Arm; Cuff Size: Standard 05-26-2016 15:04-0400 Heart rate 67 /min Christ KESSLER MD Work Phone: [facility] SandForce Christian[facility] HospitalBeloorBayir Biotech; [place] [employer] Comment on above: Pattern: Regular 05-26-2016 15:04-0400 Systolic blood pressure 118 mm[Hg] Christ KESSLER MD Work Phone: [facility] SandForce Christian[facility] HospitalFlixwagon.; BioPro PharmaceuticalNEW [facility]EC[facility] Ideal Binary [facility] Comment on above: Patient Position: Sitting; Cuff Location : Left Arm; Cuff Size: Standard 04-28-2016 09:58-0400 Body height 177.16 cm Christ KESSLER MD Work Phone: [facility] SandForce Christian[facility] HospitalFlixwagon.; [facility] [place] Ideal Binary [facility] SandForce Christian[facility] HospitalFlixwagon. 04-28-2016 09:58-0400 Body mass index (BMI) [Ratio] 21.56 kg/m2 Christ KESSLER MD Work Phone: [facility] CenterLabfolder [facility] HospitalFlixwagon.; [facility] [place] Ideal Binary [facility] SandForce Christian[facility] HospitalFlixwagon. 04-28-2016 09:58-0400 Body surface area Derived from formula 1.84 m2 Christ KESSLER MD Work Phone: [facility] SandForce [facility] HospitalFlixwagon.; [facility] [place] Ideal Binary [facility] [employer]. 04-28-2016 09:58-0400 Body temperature 97.7 [degF] Christ KESSLER MD Work Phone: [facility] SandForce [facility] HospitalFlixwagon.; [facility] [place] Ideal Binary [facility] SandForce [facility] HospitalFlixwagon. Comment on above: Method: Oral 04-28-2016 09:58-0400 Body weight 67.68 kg Christ KESSLER MD Work Phone: [facility] CenterLabfolder [facility] HospitalFlixwagon.; Enkata TechnologiesEK Ideal Binary [facility] [employer]. 04-28-2016 09:58-0400 Diastolic blood pressure 60 mm[Hg] Christ KESSLER MD Work Phone: [facility] CenterPLC Diagnostics.; Enkata TechnologiesEK Ideal Binary [facility] PolyInnovations Comment on above: Patient Position: Sitting; Cuff Location : Left Arm; Cuff Size: Standard 04-28-2016 09:58-0400 Heart rate 88 /min Christ KESSLER MD Work Phone: [employer]; Enkata TechnologiesEK Arzeda. Comment on above: Pattern: Regular 04-28-2016 09:58-0400 Systolic blood pressure 93 mm[Hg] Christ EKSSLER MD Work Phone: [employer]; Enkata TechnologiesEK Arzeda. Comment on above: Patient Position: Sitting; Cuff Location : Left Arm; Cuff Size: Standard 01-29-2014 14:39-0400 Body height 174.63 cm Christ KESSLER MD Work Phone: [employer]; [employer] [facility] [employer]Cell. 01-29-2014 14:39-0400 Body mass index (BMI) [Percentile] Per age and sex 51 % Christ KESSLER MD Work Phone: [employer]; [employer]. 01-29-2014 14:39-0400 Body mass index (BMI) [Ratio] 21.79 kg/m2 Christ KESSLER MD Work Phone: [employer]; [employer] [facility] [employer]. 01-29-2014 14:39-0400 Body surface area Derived from formula 1.81 m2 Christ KESSLER MD Work Phone: [employer]; [employer]. 01-29-2014 14:39-0400 Body temperature 98 [degF] Christ KESSLER MD Work Phone: [employer]; [employer]. Comment on above: Method: Oral 01-29-2014 14:39-0400 Body weight 66.45 kg Christ KESSLER MD Work Phone: [employer]. 01-29-2014 14:39-0400 Diastolic blood pressure 65 mm[Hg] Christ KESSLER MD Work Phone: [employer]. Comment on above: Patient Position: Sitting; Cuff Location : Left Arm; Cuff Size: Standard 01-29-2014 14:39-0400 Heart rate 71 /min Christ KESSLER MD Work Phone: [employer]. Comment on above: Pattern: Regular 01-29-2014 14:39-0400 Systolic blood pressure 107 mm[Hg] Christ KESSLER MD Work Phone: [employer]. Comment on above: Patient Position: Sitting; Cuff Location : Left Arm; Cuff Size: Standard 09-07-2012 10:03-0500 Body height 171.45 cm Christ KESSLER MD Work Phone: [employer]. 09-07-2012 10:03-0500 Body mass index (BMI) [Percentile] Per age and sex 66 % Christ KESSLER MD Work Phone: [employer]. 09-07-2012 10:03-0500 Body mass index (BMI) [Ratio] 22.07 kg/m2 Christ KESSLER MD Work Phone: [employer]. 09-07-2012 10:03-0500 Body surface area Derived from formula 1.76 m2 Christ KESSLER MD Work Phone: [employer] [facility] [employer]. 09-07-2012 10:03-0500 Body weight 64.86 kg Christ KESSLER MD Work Phone: [employer]. 09-07-2012 10:03-0500 Diastolic blood pressure 68 mm[Hg] Christ KESSLER MD Work Phone: [employer]. Comment on above: Patient Position: Sitting; Cuff Location : Left Arm; Cuff Size: Standard 09-07-2012 10:03-0500 Heart rate 60 /min Christ KESSLER MD Work Phone: [employer]. Comment on above: Pattern: Regular 09-07-2012 10:03-0500 Systolic blood pressure 105 mm[Hg] Christ KESSLER MD Work Phone: [employer] [facility] [employer]. Comment on above: Patient Position: Sitting; Cuff Location : Left Arm; Cuff Size: Standard 07-19-2011 16:50-0500 Body height 168.28 cm Christ KESSLER MD Work Phone: [employer]. 07-19-2011 16:50-0500 Body mass index (BMI) [Percentile] Per age and sex 55 % Christ KESSLER MD Work Phone: [employer] [facility] [place] [employer]. 07-19-2011 16:50-0500 Body mass index (BMI) [Ratio] 20.34 kg/m2 Christ KESSLER MD Work Phone: [employer] [facility] [employer]. 07-19-2011 16:50-0500 Body surface area Derived from formula 1.65 m2 Christ KESSLER MD Work Phone: [employer]; [employer] [facility] [employer]. 07-19-2011 16:50-0500 Body weight 57.61 kg Christ KESSLER MD Work Phone: [employer] [facility] [employer]. 07-19-2011 16:50-0500 Diastolic blood pressure 73 mm[Hg] Christ KESSLER MD Work Phone: [facility] SandForce [facility] HospitalBeloorBayir Biotech; [facility] SandForce [facility] HospitalBeloorBayir Biotech Comment on above: Patient Position: Sitting; Cuff Location : Left Arm; Cuff Size: Large 07-19-2011 16:50-0500 Heart rate 66 /min Christ KESSLER MD Work Phone: [facility] SandForce [facility] HospitalBeloorBayir Biotech; [facility] [employer]. Comment on above: Pattern: Regular 07-19-2011 16:50-0500 Systolic blood pressure 115 mm[Hg] Christ KESSLER MD Work Phone: [facility] CenterSquee; [facility] [employer]. Comment on above: Patient Position: Sitting; Cuff Location : Left Arm; Cuff Size: Large Encounters Encounter Date Encounter Type Care Provider Facility Start: 04-19-2025 ambulatory [facility] Start: 04-03-2025 End: 04-03-[address] Fredi Armenta MD [facility] Start: 04-03-2025 End: 04-03-[address] Adam Deluca MD Work Phone: [facility] Start: 01-30-2025 End: 01-30-2025 Results Review Christ KESSLER MD Work Phone: [facility] SandForce [facility] HospitalFlixwagon Start: 01-29-2025 End: 01-29-2025 ambulatory AMY ANDREWS [facility] Start: 01-29-2025 End: 01-29-2025 Immune system finding Christ KESSLER MD Work Phone: [facility] CenterLabfolder [facility] HospitalBeloorBayir Biotech; [email or web address] [facility] [employer] Start: 01-29-2025 End: 01-29-2025 Initial preventive medicine new pt age 18-39yrs Christ KESSLER MD Work Phone: [facility] SandForce [facility] HospitalFlixwagon Start: 01-29-2025 End: 01-29-2025 Patient encounter status AMY HEBERT Work Phone: [employer]; [employer]. Start: 03-06-2024 End: 05-07-2024 ambulatory ALEJANDRO MEDRANO MD Facility:[facility] Start: 03-06-2024 End: 05-07-2024 Physical therapy management ALEJANDRO MEDRANO MD [facility] Start: 01-25-2024 End: 01-25-2024 Historical Summary Christ KESSLER MD Work Phone: [employer] Start: 01-25-2024 End: 01-25-2024 Patient encounter status RAÚL FERREIRA MD Work Phone: [employer]; [employer] Start: 01-25-2024 End: 01-25-2024 Periodic preventive med est patient 18-39 yrs Christ KESSLER MD Work Phone: [employer] Start: 08-02-2020 End: 08-02-2020 Medication Refill/Order Christ KESSLER MD Work Phone: [facility] Start: 04-03-2020 End: 04-03-2020 Historical Summary Christ KESSLER MD Work Phone: [facility] [place] [employer] Start: 05-19-2018 End: 05-19-2018 Follow-up encounter Christ KESSLER MD Work Phone: [employer]EK [employer] Start: 05-18-2018 End: 05-18-2018 Lab Only Christ KESSLER MD Work Phone: [facility] [employer] Start: 05-07-2018 End: 05-07-2018 Lab Only Christ KESSLER MD Work Phone: [facility] [email or web address] Start: 04-10-2018 End: 04-10-2018 Office outpatient visit 15 minutes Christ KESSLER MD Work Phone: [facility]. Start: 12-01-2017 End: 12-01-2017 Historical Summary Christ KESSLER MD Work Phone: [facility] [employer]. Start: 12-01-2017 End: 12-01-2017 Results Review Christ KESSLER MD Work Phone: [facility] [place] [employer]. Start: 11-30-2017 End: 11-30-2017 Office outpatient visit 15 minutes Christ KESSLER MD Work Phone: [facility] [place] [employer]. Start: 10-16-2017 End: 10-16-2017 Historical Summary Christ KESSLER MD Work Phone: [facility] [employer]. Start: 10-09-2017 End: 10-09-2017 Office outpatient visit 15 minutes Christ KESSLER MD Work Phone: [place] [employer]al Binary [facility] [employer]. Start: 07-20-2017 End: 07-20-2017 Historical Summary Christ KESSLER MD Work Phone: [facility] [employer]. Start: 07-20-2017 End: 07-20-2017 Office outpatient visit 15 minutes Christ KESSLER MD Work Phone: [place] Ideal Binary [facility] [employer]. Start: 06-02-2017 End: 06-02-2017 Follow-up encounter Christ KESSLER MD Work Phone: [facility] [place] Ideal Binary [facility] [employer]. Start: 05-29-2017 End: 05-29-2017 Office outpatient visit 15 minutes Christ KESSLER MD Work Phone: BioPro PharmaceuticalNEW [facility] Ideal Binary [facility] [employer]. Start: 05-26-2016 End: 05-26-2016 Office outpatient visit 15 minutes Christ KESSLER MD Work Phone: [facility] SandForce [facility] HospitalBeloorBayir Biotech Start: 04-28-2016 End: 04-28-2016 Office outpatient visit 15 minutes Christ KESSLER MD Work Phone: [facility] HospitalBeloorBayir Biotech Start: 01-29-2014 End: 01-29-2014 Patient encounter procedure Christ KESSLER MD Work Phone: [facility] SandForce [facility] HospitalBeloorBayir Biotech Start: 09-07-2012 End: 09-07-2012 Patient encounter procedure Christ KESSLER MD Work Phone: [facility] Start: 03-08-2012 End: 03-08-2012 Results Review Christ KESSLER MD Work Phone: [facility] SandForce [facility] HospitalBeloorBayir Biotech Start: 11-27-2011 End: 11-27-2011 Results Review Christ KESSLER MD Work Phone: [facility] Start: 11-23-2011 End: 11-27-2011 Results Review Christ KESSLER MD Work Phone: [facility] SandForce [facility] HospitalBeloorBayir Biotech Start: 11-23-2011 End: 11-23-2011 Phone Encounter Christ KESSLER MD Work Phone: [facility] SandForce [facility] HospitalBeloorBayir Biotech Start: 07-19-2011 End: 07-19-2011 Patient encounter procedure Christ KESSLER MD Work Phone: [facility] SandForce [facility] HospitalBeloorBayir Biotech Start: 06-11-2010 End: 06-11-2010 Historical Summary Christ KESSLER MD Work Phone: [facility] SandForce Christiana HospitalFlixwagon Letter encounter AMY FREEMANP-Nelli Work Phone: [facility] SandForce [facility] HospitalBeloorBayir Biotech; [facility] SandForce Christian[facility] HospitalFlixwagon Procedures Date Procedure Procedure Detail Performing Clinician Start: 01-29-2025 End: 01-29-2025 Dischrg meds reconciled w/current med list AMY ANDREWS [employer]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 Start: 11-27-2011 End: 11-27-2011 Radex hand minimum 3 views Christ Polanco MD Work Phone: Comment on above: Right hand. Struck b y fly baseball yesterday. Please evaluate for fracture. Please call report to our [place] [facility] ([phone]) when complete (fax [phone]) Start: 10-30-2011 End: 10-30-2011 Right hand Fx distal shaft right 5th metacarpal ALIA COLLADO MD Work Phone: Entire ear (body structure) ALEJANDRO MEDRANO MD [facility] Christ KESSLER MD Work Phone: Comment on above: 2017 Plan of Treatment Date Care Activity Detail Author Start: 04-03-2025 X-ray of cervical spine Cerv Spine 4 or 5 Views [facility] Start: 04-03-2025 XR Cervical spine 4 or 5 Views [facility] Start: 01-29-2025 Antibody varicella-zoster VARICELLA ANTIBODY (04900) IgG Immune Status Start: 29-Jan-2025 11:11-04:00 Request [employer] [email or web address] [facility] [employer]. Start: 01-25-2024 Comprehensive metabolic panel CMP - COMPREHENSIVE METABOLIC PANEL (10778) Start: 25-Jan-2024 10:02-04:00 Request [employer] [facility] [facility] [employer]. Start: 01-25-2024 Lipid panel LIPID PANEL (86288) Start: 25-Jan-2024 10:02-04:00 Request [employer] [facility] [employer]. Start: 07-20-2017 Gluc bld gluc mntr dev cleared fda spec home use GLUCOSE (IN OFFICE) (48743) Start: 20-Jul-2017 16:11-05:00 Request [employer]; [facility] [employer]. Start: 05-29-2017 Sedimentation rate rbc non-automated SED RATE ERYTHROCYTE (74667) Start: 29-May-2017 15:17-04:00 Request [employer] [facility] [employer]. Start: 05-29-2017 Comprehensive metabolic panel CMP - COMPREHENSIVE METABOLIC PANEL (47701) Start: 29-May-2017 15:17-04:00 Request [employer].; BioPro PharmaceuticalNEW [facility]EC[facility] Arzeda. Start: 05-29-2017 Blood count complete auto&auto difrntl wbc CBC, PLATELETS & AUT DIFF (24420) Start: 29-May-2017 15:15-04:00 Request [employer].; BioPro PharmaceuticalAllegheny Valley Hospital [employer]Cell. Start: 05-29-2017 Radex spine lumbosacral minimum 4 views X-RAY L/S SPINE - COMPLETE - 3 VIEWS ([id number]) Start: 29-May-2017 Intent [employer] [facility] [employer] Start: 01-29-2014 Patient Education ACNE Indication: ACNE Start: 29-Jan-2014 Instruction Type: Patient Education [employer]. MR Cervical spine [facility] Immunizations Immunization Date Immunization Notes Care Provider Bandar moe 09-01-2020 Covshae (Rachel) Dr. Adam James MD Work Phone: [facility] 08-04-2020 Cynthia Solano) Dr. Adam James MD Work Phone: [facility] 05-22-2020 influenza, injectabl e, quadrivalent, preservative free Dr. Adam Deluca MD Work Phone: [facility] 05-18-2019 influenza, injectabl e, quadrivalent, preservative free Dr. Adam Deluca MD Work Phone: [facility] Payers Date Payer Category Payer Self-pay 2024 Unknown [id number] 1996 Unknown [id number] 1996 Unknown [id number] Unknown [employer] Unknown [id number] [id number] Unknown [id number] Unknown [id number] [id number] Social History Date Type Detail Facility Alcohol Use: Alcohol Use: ; N o [facility] Current Work/Study Status Current Work/Study Status [facility] [employer] [facility] Tobacco use: Tobacco use: ; N ever smoker. [employer] [facility] [facility]; [facility] [employer] [facility] Start: 1995 Male [facility] Start: 02-22-2024 Never smoked tobacco [facility] [employer] [facility]; [facility] [employer] [facility] Work Phone: Sex Assigned At Sex [facility] Evaluation + Plan note Note Date & Type Note Facility Evaluation + Plan note No data available for this section [facility] Evaluation note Note Date & Type Note Facility Evaluation note No assessment information availa jacy [facility] Work Phone: Hospital Discharge instructions Note Date & Type Note Facility Hospital Discharge instructions No data available for this section [facility] Progress note Note Date & Type Note Facility Progress note No data available for this section [facility] Reason for referral (narrative) Note Date & Type Note Facility Reason for referral (narrative) No reason for referral information available [facility] [employer] [facility] Work Phone: Family History No Family History Records Found Father Status:Active Comments:A&W Mother Status:Active Comments:A&W Father Status:Active Comments:A&W Mother Status:Active Comments:A&W Father Status:Active Comments:A&W Mother Status:Active Comments:A&W Father Status:Active Comments:A&W Mother Status:Active Comments:A&W Father Status:Active Comments:A&W Mother Status:Active Comments:A&W Father Status:Active Comments:A&W Mother Status:Active Comments:A&W Father Status:Active Comments:A&W Mother Status:Active Comments:A&W Father Status:Active Comments:A&W Mother Status:Active Comments:A&W Father Status:Active Comments:A&W Mother Status:Active Comments:A&W Father Status:Active Comments:A&W Mother Status:Active Comments:A&W Father Status:Active Comments:A&W Mother Status:Active Comments:A&W Father Status:Active Comments:A&W Mother Status:Active Comments:A&W Father Status:Active Comments:A&W Mother Status:Active Comments:A&W Father Status:Active Comments:A&W Mother Status:Active Comments:A&W Relationship Condition Age at Onset Recorded Date/T nic[place] grandfather Myocardial infarction Unknown Hypertension Unknown grandmother Diabetes mellitus Unknown Summary Purpose Advance Directives No Advanced Directives Records FoundNo Advanced Directives Records FoundNo Advanced Directives Records FoundNo Advanced Directives Records FoundNo Advanced Directives Records Found Chief Complaint and Reason for Visit Chief Complaint Admit Date CERVICAL SPINE April 03, 2025 8:12am Room 4 April 03, 2025 8:46am Additional Source Comments (unrecognized sect ion and content) No Status Records FoundNo Status Records FoundNo Status Records FoundNo Status Records FoundNo Status Records Found INFORMATION SOURCE (unrecogn ized section and content) DATE CREATED AUTHOR 03/09/2024 [facility] ([place]) DATE CREATED AUTHOR AUTHOR'S ORGANIZ ATION 05/09/2024 [facility] DATE CREATED AUTHOR AUTHOR'S ORGANIZ ATION 01/03/2025 [facility] DATE CREATED AUTHOR AUTHOR'S ORGANIZ ATION 02/01/2025 [facility] DATE CREATED AUTHOR AUTHOR'S ORGANIZ ATION 04/16/2025 [facility] Patient Care team informatio n (unrecognized section and content) Team Status: Active Member Role/Relationship Status Dates Dr. Adam Deluca MD Primary Care Provider Active Team Status: Active Member Role/Relationship Status Dates Dr. Adam Deluca MD Primary Care Provider Active Start: April 03, 2025 Dr. Adam Deluca MD Referring Provider Active Start: April 03, 2025 Dr. Alejandro Medrano MD Attending Provider Active Start: April 03, 2025 Team Status: Inactive Member Role/Relationship Status Dates Dr. Adam Deluca MD Primary Care Provider Active Start: April 03, 2025 End: April 03, 2025 Dr. Fredi Armenta MD Attending Provider Active S tart: April 03, 2025 End: April 03, 2025 Team Status: Inactive Member Role/Relationship Status Dates Dr. Adam Deluca MD Primary Care Provider Active Start: April 03, 2025 End: April 03, 2025 Dr. Adam Deluca MD Referring Provider Active Start: April 03, 2025 End: April 03, 2025 Dr. Alejandro Medrano MD Attending Provider Active Start: April 03, 2025 End: April 03, 2025 Goals (unrecognized section and content) Goals may be documented in a n alternate section FOR RECORDS PERTAINING TO PATIENTS WHO ARE OR HAVE BEEN ENROLLED IN A CHEMICAL DEPENDENCY/SUBSTANCEABUSE PROGRAM, SOME INFORMATION MAY BE OMITTED. This clinical summary was aggregated from multiple sources. Caution should be exercised in using it in the provision of clinical care. This summary normalizes information from multiple sources, and as a consequence, information in this document may materially change the coding, format and clinical context of patient data. In addition, data may be omitted in some cases. CLINICAL DECISIONS SHOULD BE BASED ON THE PRIMARY CLINICAL RECORDS. [facility]. provides no warranty or guarantee of the accuracy or completeness of information in this document.
--- NOTE | 2025-04-19 08:12 | MRI_ITS ---
PROCEDURE: SPINE CERVICAL (ROUTINE) 04/19/2025 REASON FOR EXAM: CERVICAL RADICULOPATHY TECHNIQUE: Procedure Code: MRISPC Modality: MR Procedure: SPINE CERVICAL (ROUTINE) Multiplanar and multisequence images were obtained without IV contrast administration. COMPARISON: X-ray cervical spine 02/22/2024. FINDINGS: Vertebrae: Cervical vertebral body heights are preserved. Bone marrow signal is unremarkable. Alignment: Normal. No spondylolisthesis. Spinal Cord: Cervical spinal cord is of normal size and signal intensities. Structures at the foramen magnum are unremarkable. C2-3: Unremarkable C3-4: Unremarkable C4-5: Unremarkable C5-6: Unremarkable C6-7: Unremarkable C7-T1: Unremarkable MRI/Spine Cervical (Routine) IMPRESSION: Unremarkable MRI of the cervical spine without significant foraminal or canal s tenosis. Reading Location: [facility]
== END | disposition home or self-care (01) ==
LOC: MRI 08:01
PROVIDERS: PCP Family Medicine; Referring Provider Orthopaedic Surgery Orthopaedic Surgery of the Spine; Visit Provider Orthopaedic Surgery Orthopaedic Surgery of the Spine
DX: M54.12 Radiculopathy, cervical region (principal)
CPT/HCPCS: 72141